=== PATIENT | male | born 1975 ===

== ENCOUNTER 2017-10-30 15:36 | Emergency (ER) | payer OTHER ==
[~2017-10-30] VITALS: Ht 172.7 cm; Wt 76.0 kg
[~2017-10-30 15:36] MED LIST: MOXI1TAB7 PO; SYMIN8045 INH
[2017-10-30 15:40] VITALS: Ht 172.7 cm; Wt 76.0 kg
--- NOTE | 2017-10-30 16:25 | DIAGNOSTIC IMAGING REPORT ---
R SHOULDER MIN 2 VIEWS ROUTINE CLINICAL HISTORY: 42 years-old Male presenting with right shoulder pain, history of calcium in the right shoulder. TECHNIQUE: Internal rotation, external rotation, Grashey views of the right shoulder were obtained. COMPARISON: None. FINDINGS: Glenohumeral and acromioclavicular joints congruent. No calcification in the region of the rotator cuff. No degenerative change. No radiographic soft tissue abnormality. Visualized portion of the right hemithorax normal. IMPRESSION: No acute osseous injury or evidence of degenerative change. Electronically signed by: Cristopher Hernandez M.D. 10/30/2017 4:23 PM Dictated Date/Time: 10/30/2017 4:22 PM
[2017-10-30] MEDS ORDERED: DICL75TA2 PO (16:40)
[2017-10-30 16:57] VITALS: BP 153/105; PULSE 57; TEMP 36.7; O2SAT 98
--- NOTE | 2017-10-30 21:36 | EMERGENCY ROOM VISIT NOTE ---
ED Visit Note First contact with patient: 15:45 CHIEF COMPLAINT: Shoulder pain HISTORY OF PRESENT ILLNESS: This 42-year-old male patient presents to the emergency department complaining of pain in the right shoulder worsening over the past one day. He does not have a distinct injury or trauma to explain his symptoms. He does have some ongoing issues with this shoulder, and has followed with orthopedics in the past. He has never had injections or surgery in this shoulder. The patient reports a popping like sensation in the arm with certain movement. There is limitation of motion of the arm because of the pain. The pain is moderate, constant and increases with motion of the hand and arm. The patient states the pain is dull and 8/10 when put in the wrong position. The patient has taken nothing for relief of the pain. No previous significant previous shoulder disease or injury. No numbness or tingling. No neck and no back pain. No chest pain or shortness of breath. No abdominal pain or nausea/ vomiting. No cough. REVIEW OF SYSTEMS: A 6 system review of systems was performed with positives and pertinent negatives in the HPI. ALLERGIES: No known allergies MEDICATIONS: No chronic medications PMH: Otherwise healthy SOCIAL HISTORY: [place] PHYSICAL EXAM: Vital Signs: Reviewed nurse's notes, vital signs stable. GENERAL : Male, in no acute distress, but appears to be in pain, well-developed, well- nourished. MUSCULOSKELETAL: There is no deformity in the contour of the right shoulder and there are no gio deformities noted. There is no sulcus sign. There is tenderness over the superior lateral shoulder. The patient's range of motion is not limited. Supraspinatus strength 5/5. There is no clavicle tenderness. No tenderness of the humerus, elbow, wrist, or hand. [employer] strength 5/5. Radial pulse 2+. NECK: No tenderness to palpation over the cervical spine. HEART: Regular rate and rhythm without murmurs gallops or rubs. LUNGS: Clear to auscultation bilaterally without wheezes, rales or rhonchi. No accessory muscle use. No retractions. NEURO: The patient is alert and oriented to person, place, and time. Normal sensation to light and sharp touch. Capillary refill less than 2 seconds. R SHOULDER MIN 2 VIEWS ROUTINE CLINICAL HISTORY: 42 years-old Male presenting with right shoulder pain, history of calcium in the right shoulder. TECHNIQUE: Internal rotation, external rotation, Grashey views of the right shoulder were obtained. COMPARISON: None. FINDINGS: Glenohumeral and acromioclavicular joints congruent. No calcification in the region of the rotator cuff. No degenerative change. No radiographic soft tissue abnormality. Visualized portion of the right hemithorax normal. IMPRESSION: No acute osseous injury or evidence of degenerative change. EMERGENCY DEPARTMENT COURSE: Physical exam and history were performed. Nursing notes and EMR were reviewed. The patient appears to have right shoulder pain slowly worsening over the past few days without obvious trauma. X -ray was performed and reviewed by myself and radiology additional no acute injury. I suspect the patient's discomfort is muscular in nature and should improve with conservative care. I will give the patient a course of diclofenac and instructions to follow with his orthopedist if symptoms persist. He is otherwise invited back to the ER with any new, worsening, or concerning symptoms. Current/Historical Medications Scheduled Diclofenac Sodium (Voltaren), 75 MG PO BID Allergies Coded Allergies: No Known Allergies (Unverified , 04/07/11) Vital Signs Date Time Temp Pulse Resp B/P (MAP) Pulse Ox O2 Delivery O2 Flow Rate FiO2 10/30/17 16:57 36.7 57 18 153/105 98 10/30/17 15:40 36.7 57 18 153/105 98 Room Air Departure Information Impression Primary Impression: Right shoulder pain Dispostion Home / Self-Care Condition GOOD Prescriptions Diclofenac Sodium (VOLTAREN) 75 Mg Tab 75 MG PO BID for 15 Days, #30 TAB Prov: Sriram Garcia PA-C 10/30/17 Forms HOME CARE DOCUMENTATION FORM, IMPORTANT VISIT INFORMATION Patient Instructions My [facility] Additional Instructions You were seen and evaluated today on an emergency basis only. This is not a substitute for, or an effort to provide, complete comprehensive medical care. It is not possible to recognize and treat all injuries or illnesses in a single emergency department visit. For this reason it is recommended that you followup with Orthopedics if symptoms persist over the next week. Take diclofenac 75 mg twice daily with food for the next week. Take this with food. You are welcome to return to the emergency department anytime with new, worsening, or concerning symptoms.
== END 2017-10-30 16:58 | disposition home or self-care (01) ==
LOC: C.EDB 15:38 → C.EDD 16:58
DX: M25.511 Pain in right shoulder (principal)